=== PATIENT | female | born 1940 | race Caucasian/White ===

== ENCOUNTER 2018-06-21 17:36 | Inpatient (IN) | payer MEDICARE, BC, OTHER ==
[~2018-06-21] VITALS: Ht 162.6 cm; Wt 81.6 kg
[2018-06-21 17:41] VITALS: BP 236/67
[2018-06-21] MEDS ORDERED: TOPROL XL100 MG PO (17:50)
[2018-06-21] MEDS ORDERED: AMLODIPINE/BENAZEPRI PO (17:51)
[2018-06-21] MEDS ORDERED: IBUPROFEN 200200 M1 PO (17:52)
[2018-06-21] MEDS ORDERED: TUMS PO (17:52)
[2018-06-21] MEDS ORDERED: FISH OIL 1,001000 M2 PO (17:52)
[2018-06-21] MEDS ORDERED: ASPIR 8181 MG PO (17:52)
[2018-06-21] MEDS ORDERED: HYZAAR 100-12.1 EACH PO (17:52)
[2018-06-21] MEDS ORDERED: VITAMIN D35000 UNI1 PO (17:53)
[2018-06-21 18:04] LABS: ABSOLUTE BASOPHILS 0.1 thou/uL (0.0-0.2); ABSOLUTE EOSINOPHILS 0.2 thou/uL (0.0-0.7); ABSOLUTE LYMPHOCYTES 2.9 thou/uL (0.8-5.3); ABSOLUTE MONOCYTES 0.7 thou/uL (0.0-1.2); ABSOLUTE NEUTROPHILS 6.6 thou/uL (1.6-8.1); BASOPHILS 0.9 %; EOSINOPHILS 1.6 %; HEMATOCRIT 46.9 % (37.0-47.0); HEMOGLOBIN 15.6 gm/dL (12.0-15.0); LYMPHOCYTES 27.4 %; MCH 29.5 pg (26.0-34.0); MCHC 33.3 g/dL (28.0-37.0); MCV 88.8 fL (80.0-100.0); MONOCYTES 6.5 %; NUCLEATED RBCS 0 /100WBC; PLATELET COUNT* 211 thou/uL (150-400); POLYS 63.6 %; RBC 5.28 mil/uL (4.20-5.00); RDW-CV 14.5 % (10.5-14.5); WBC 10.5 thou/uL (4.0-11.0)
[2018-06-21 18:15] LABS: ANION GAP 8 mmol/L (7-16); BUN 19 mg/dL (7-18); CALCIUM 9.2 mg/dL (8.5-10.1); CHLORIDE 102 mmol/L (98-107); CO2 31 mmol/L (21-32); CREATININE 0.8 mg/dL (0.6-1.3); GLUCOSE 120 mg/dL (70-99); POTASSIUM 3.8 mmol/L (3.5-5.1); SODIUM 141 mmol/L (136-145)
[2018-06-21 18:17] LABS: APTT 26.1 Seconds (25.0-31.3)
[2018-06-21 18:35] LABS: ALBUMIN 3.6 g/dL (3.4-5.0); ALKALINE PHOSPHATASE 64 U/L (46-116); CK-MB MASS 1.6 ng/mL (<0.5-3.6); LIPASE 135 U/L (73-393); MAGNESIUM 1.9 mg/dL (1.8-2.4); NT-PRO BRAIN NAT PEPTIDE 529 pg/mL (<300); SGOT 12 U/L (15-37); SGPT 22 U/L (30-65); TOTAL BILIRUBIN 0.3 mg/dL (<0.1-1.0); TOTAL PROTEIN 7.3 g/dL (6.4-8.2); TROPONIN-I LEVEL <0.06 ng/mL (<0.06)
[2018-06-21 19:53] VITALS: BP 168/61
[2018-06-21 20:30] VITALS: BP 193/70
[2018-06-21 23:58] VITALS: BP 169/52
[2018-06-22 04:15] VITALS: BP 182/64
[2018-06-22 06:04] LABS: HEMATOCRIT 44.7 % (37.0-47.0); HEMOGLOBIN 14.8 gm/dL (12.0-15.0); MCH 29.2 pg (26.0-34.0); MCHC 33.1 g/dL (28.0-37.0); MCV 88.3 fL (80.0-100.0); MPV 9.9 fl. (7.2-11.1); RBC 5.06 mil/uL (4.20-5.00); RDW-CV 14.5 % (10.5-14.5)
[2018-06-22 06:14] LABS: CREATININE 0.7 mg/dL (0.6-1.3); POTASSIUM 4.2 mmol/L (3.5-5.1)
[2018-06-22 07:25] VITALS: BP 198/63
[2018-06-22 09:07] VITALS: BP 160/48
[2018-06-22 11:05] VITALS: BP 198/63
--- NOTE | 2018-06-22 12:30 | EKG ---
[place] [address] ELECTROCARDIOGRAM REPORT Name: LYLE MAC Room: [address] ADM IN .R.#: [id number] Admission: 06/21/18 Attend Phys: Addis Hoff MD Discharge: Date of : 36 Report #: [id number] THIS REPORT FOR: //name// [facility] ED Test Date: 2018-06-21 Test Time: 17:46:21 Pat Name: LYLE MEADOWSLASHAY Department: Room: [facility] Gender: F Job Coaching: BERNICE : 1940 Requested By: Kan Yu Order Number: [id number] MD: Jose aPl Measurements Intervals Alexander Rate: 69 P: 78 MN: 196 QRS: 10 QRSD: 89 T: 43 QT: 359 QTc: 385 Interpretive Statements Sinus rhythm Atrial premature complexes Nonspecific ST depression No previous ECG available for comparison Electronically Signed On 06-22-2018 12:30:32 WARP TYING MACHINE KNOTTER by Jose Pal [email or web address] <ELECTRONICALLY SIGNED> By: Jose Pal MD, [facility] 06/22/18 1230 1746 45 Jose Pal MD, FACC /EPI
[2018-06-22] MEDS ORDERED: NORVASC5 MG PO (12:32)
[2018-06-22] MEDS ORDERED: LISINOPRIL10 MG PO (12:33)
--- NOTE | 2018-06-22 13:22 | EKG ---
[place] [address] ELECTROCARDIOGRAM REPORT Name: LYLE MAC Room: [address] DIS IN M.R.#: [id number] Admission: 06/21/18 Attend Phys: Addis Hoff MD Discharge: 06/22/18 Date of : 36 Report #: [id number] THIS REPORT FOR: //name// [facility] Test Date: 2018-06-22 Test Time: 00:49:35 Pat Name: LYLE MAC Department: Room: [address] Gender: F Social Media Senior Associate: UNK : 1940 Requested By: Addis Hoff Order Number: [id number] Misha MD: Jose Pal Measurements Intervals [place] Rate: 70 P: 69 [place]: 186 QRS: 17 QRSD: 89 T: 41 QT: 392 QTc: 423 Interpretive Statements Sinus rhythm ST depression, consider ischemia, lateral leads Electronically Signed On 06-22-2018 13:22:10 NOZZLE AND SLEEVE WORKER by Jose Pal [email or web address] <ELECTRONICALLY SIGNED> By: Jose Pal MD, [facility] 06/22/18 1322 0049 004 Jose Pal MD, FACC /EPI
--- NOTE | 2018-06-22 13:24 | EKG ---
[place] [address] ELECTROCARDIOGRAM REPORT Name: LYLE MAC Room: [address] IN M.R.#: [id number] Admission: 06/21/18 Attend Phys: Addis Hoff MD Discharge: 06/22/18 Date of : 36 Report #: [id number] THIS REPORT FOR: //name// [facility] Test Date: 2018-06-22 Test Time: 07:58:02 Pat Name: LYLE MAC Department: Room: [address] Gender: F Dynamiter: JORDANA : 1940 Requested By: Addis Hoff Order Number: [id number] MD: Jose Pal Measurements Intervals [place] Rate: 53 P: 77 AR: 201 QRS: 9 QRSD: 122 T: 19 QT: 445 QTc: 418 Interpretive Statements Sinus rhythm Probable left ventricular hypertrophy Electronically Signed On 06-22-2018 13:24:17 THREAD WINDER by Jose Pal [email or web address] <ELECTRONICALLY SIGNED> By: Jose Pal MD, [facility] 06/22/18 1324 0758 0758 Jose Pal MD, FACC /EPI
--- NOTE | 2018-06-22 14:00 | 2DMMODE ---
[place] [address] 2 D/M-MODE ECHOCARDIOGRAM Name: LYLE MAC Room: [address] IN [facility]#: [id number] Admission: 06/21/18 Attend Phys: Addis Hoff, Discharge: 06/22/18 Date of : 36 Date of Service: 06/22/18 1400 Report #: [id number] THIS REPORT FOR: //name// APPROVED REPORT Study performed: 06/22/2018 10:48:26 EXAM: Comprehensive 2D, Doppler, and color-flow Echocardiogram Patient Location: In-Patient Room #: 200 Status: routine BSA: 1.87 HR: 64 bpm BP: 160/48 mmHg Rhythm: NSR Other Information Study Quality: Good Indications Palpitations Hypertension/HDD 2D Dimensions IVSd: 10.38 (7-11mm) LVOT Diam: 17.91 (18-24mm) LVDd: 48.06 mm PWd: 9.82 (7-11mm) Ascending Ao: 28.26 (22-36mm) LVDs: 24.33 (25-40mm) Aortic Root: 30.04 mm Volumes Left Atrial Volume (Systole) LA ESV Index: 24.80 mL/m2 Aortic Valve AoV Peak Ramon.: 1.50 m/s AO Peak Gr.: 8.97 mmHg LVOT Max P.98 mmHg AO Mean Gr.: 5.25 mmHg LVOT Mean P.70 mmHg LVOT Max V: 1.58 m/s AO V2 VTI: 33.57 cm LVOT Mean V: 0.99 m/s DINESH (VTI): 2.59 cm2 LVOT V1 VTI: 34.45 cm Mitral Valve MV Mean Gr.: 1.13 mmHg E/A Ratio: 1.28 MV Decel. Time: 242.48 [place] [address] 2 D/M-MODE ECHOCARDIOGRAM Name: LYLE MAC Room: [address]#: [id number] Admission: 06/21/18 Attend Phys: Addis Hoff, Discharge: 06/22/18 Date of : 36 Date of Service: 06/22/18 1400 Report #: [id number] MV E Max Ramon.: 0.94 m/s MV PHT: 70.32 ms MVA (PHT): 3.13 cm2 TDI E/Lateral E': 8.55 E/Medial E': 8.55 Medial E' Ramon.: 0.11 m/s Lateral E' Ramon.: 0.11 m/s Pulmonary Valve PV Peak Ramon.: 0.96 m/s PV Peak Gr.: 3.71 mmHg Tricuspid Valve RAP Estimate: 5.00 mmHg TR Peak Gr.: 25.03 mmHg RVSP: 30.00 mmHg PA Pressure: 30.00 mmHg Left Ventricle The left ventricle is normal size. There is normal LV segmental wall motion. There is normal left ventricular wall thickness. Left ventricular systolic function is normal. The left ventricular ejection fraction is within the normal range. LVEF is 60-65%. The left ventricular diastolic function is normal. Right Ventricle The right ventricle is normal size. The right ventricular systolic function is normal. Atria The left atrium size is normal. The right atrium size is normal. Aortic Valve The Aortic valve is sclerotic. No aortic regurgitation is present. There is no aortic valvular stenosis. Mitral Valve Moderate mitral annular calcification. The mitral valve is normal in structure. Trace mitral regurgitation. No evidence of mitral valve stenosis. Tricuspid Valve The tricuspid valve is normal in structure. Mild tricuspid regurgitation. estimated pa pressure 35 mm [place] [address] 2 D/M-MODE ECHOCARDIOGRAM Name: LYLE MAC Room: [address]#: [id number] Admission: 06/21/18 Attend Phys: Addis Hoff, Discharge: 06/22/18 Date of : 36 Date of Service: 06/22/18 1400 Report #: [id number] Pulmonic valve is not well visualized. There is no pulmonic valvular regurgitation. Great Vessels The aortic root is normal in size. IVC is normal in size and collapses >50% with inspiration. Pericardium There is no pericardial effusion. <Conclusion> LVEF is 60-65% The Aortic valve is sclerotic. <ELECTRONICALLY SIGNED> By: Jose Pal MD, FACC 06/22/18 1400 1400 1400 Jose Pal MD, FACC /INF
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
== END 2018-06-22 12:45 | disposition home or self-care (01) | DRG 305 ==
LOC: M.ERS 17:36 → M.TBA-ER 18:13 → M.2W 18:13
PROVIDERS: Family Medicine; ADMIT Internal Medicine
DX: I16.0 Hypertensive urgency (principal); I10 Essential (primary) hypertension; I49.3 Ventricular premature depolarization; E66.9 Obesity, unspecified; F32.9 Major depressive disorder, single episode, unspecified; Z87.442 Personal history of urinary calculi; Z87.891 Personal history of nicotine dependence; Z87.828 Personal history of other (healed) physical injury and trauma; Z79.82 Long term (current) use of aspirin; Z79.899 Other long term (current) drug therapy; Z68.30 Body mass index [BMI] 30.0-30.9, adult; Z88.8 Allergy status to other drugs, medicaments and biological substances; Z83.3 Family history of diabetes mellitus; Z82.49 Family history of ischemic heart disease and other diseases of the circulatory system